=== PATIENT | female | born 1985 ===

== ENCOUNTER 2024-03-12 13:15 | Inpatient (IN) | payer OTHER ==
[~2024-03-12] VITALS: Ht 162.6 cm; Wt 59.0 kg
[2024-03-21] VITALS (8 sets, daily range): BP systolic 106–135; BP diastolic 64–80
[2024-03-21] MEDS ORDERED: AMPICILLIN SODIUM 2,000 MG VIAL ONE (06:29)
[2024-03-21] MEDS ORDERED: PRENATAL TABLE1 EAC1 PO (06:54)
[2024-03-21] MEDS ORDERED: RINGERS SOLUTION,LACTATED 1,000 ML IV SCH (07:00)
[2024-03-21] MEDS ORDERED: AMPICILLIN SODIUM 2,000 MG VIAL IV ONE (07:00)
[2024-03-21] MEDS ORDERED: OXYTOCIN 20 UNITS/500ML RL PIGGYBAG IV ONE (07:01)
[2024-03-21] MEDS ORDERED: OXYTOCIN 500 ML IV ONE (07:30)
[2024-03-21 07:56] LABS: HEMATOCRIT 33.2 % (36.0-45.00); HEMOGLOBIN 11.3 g/dL (12.0-15.00); MEAN CELL VOLUME 88.7 fL (80.00-100.00); MEAN CORPUSCULAR HEMOGLOBIN 30.1 pg (27.00-32.0); MEAN CORPUSCULAR HGB CONC 33.9 g/dl (32.0-36.0); PLATELET COUNT 192 K/uL (150-450); RED BLOOD COUNT 3.75 M/uL (4.00-6.00); RED CELL DISTRIBUTION WIDTH 13.8 % (11.5-14.5)
[2024-03-21 08:41] LABS: INR 0.94; PARTIAL THROMBOPLASTIN TIME 28.2 SECONDS (22.0-34.0); PROTHROMBIN TIME 10.3 SECONDS (9.0-11.5)
[2024-03-21 08:55] LABS: ALBUMIN 2.6 gm/dL (3.4-5.0); BILIRUBIN TOTAL 0.45 mg/dL (0.3-1.2); CALCIUM 9.2 mg/dL (8.5-10.1); CREATININE SERUM 0.5 mg/dL (0.55-1.02); GFR 138.83; GLOBULINA 4.5 G/DL (2.4-3.5); POTASSIUM 3.92 mEq/L (3.5-5.1); TOTAL PROTEIN 7.1 gm/dL (6.4-8.2)
[2024-03-21] MEDS ORDERED: ONDANSETRON HCL 2 MG/ML VIAL IV NR (09:45)
[2024-03-21] MEDS ORDERED: MORPHINE SULFATE 4 MG/ML CARTRIDGE IV NR (09:45)
[2024-03-21] MEDS ORDERED: OXYTOCIN 20 UNITS/1000ML RL PIGGYBAG IV ONE (10:04)
[2024-03-21] MEDS ORDERED: CHLORHEXIDINE GLUCONATE 120 ML BOTTLE TOP ONE ×2 (10:04→14:15)
[2024-03-21] MEDS ORDERED: LIDOCAINE HCL 1% 10ML VIAL ONE ×2 (10:04→13:04)
[2024-03-21] MEDS ORDERED: ERYTHROMYCIN BASE 1 GM TUBE OP ONE ×2 (10:04→14:15)
[2024-03-21] MEDS ORDERED: AMPICILLIN SODIUM 1,000 MG VIAL IV SCH (12:00)
[2024-03-21] MEDS ORDERED: NALOXONE HCL 0.4 MG/ML AMPUL ONE (12:28)
[2024-03-21] MEDS ORDERED: METHYLERGONOVINE MALEATE 0.2 MG/ML AMPUL ONE (13:16)
[2024-03-21] MEDS ORDERED: IBUprofen 400 MG TABLET PO PRN (13:45)
[2024-03-21] MEDS ORDERED: OxyCODONE HCL/APAP UD (PERCOCET) PO PRN (13:45)
[2024-03-21] MEDS ORDERED: OXYTOCIN 1,000 ML IV SCH (13:45)
[2024-03-21] MEDS ORDERED: LIDOCAINE HCL 1% 10ML VIAL IJ ONE (14:15)
[2024-03-21] MEDS ORDERED: METHYLERGONOVINE MALEATE 0.2 MG/ML AMPUL IM STA (14:17)
[2024-03-21] MEDS ORDERED: NALOXONE HCL 0.4 MG/ML AMPUL IV STA (14:17)
[2024-03-22] VITALS: BP 111/71
[2024-03-22 08:00] VITALS: BP 119/79
[2024-03-22] MEDS ORDERED: DOCUSATE SODIUM 100MG CAP PO SCH (09:00)
[2024-03-22 15:38] VITALS: BP 122/77
[2024-03-23 01:09] VITALS: BP 115/72
[2024-03-23 09:29] VITALS: BP 119/77
[2024-03-23 11:03] VITALS: BP 119/77
== END 2024-03-23 12:03 | disposition home or self-care (01) | DRG 807 ==
LOC: LDR 03-21 06:21 → OB/GYN 03-21 16:22
PROVIDERS: Obstetrics & Gynecology; ADMIT Obstetrics & Gynecology; ATTEND Obstetrics & Gynecology
PROC: 10D07Z6 Extraction of Products of Conception, Vacuum, Via Natural or Artificial Opening (ICD-10-PCS; principal; 2024-03-21)
PROC: 0W8NXZZ Division of Female Perineum, External Approach (ICD-10-PCS; 2024-03-21)
PROC: 4A1HXCZ Monitoring of Products of Conception, Cardiac Rate, External Approach (ICD-10-PCS; 2024-03-21)
DX: O66.5 Attempted application of vacuum extractor and forceps (principal); O99.824 Streptococcus B carrier state complicating childbirth; Z37.0 Single live birth; Z3A.39 39 weeks gestation of pregnancy

== ENCOUNTER 2024-03-16 13:08 | Outpatient (CLI) | payer OTHER | END 2024-03-16 14:22 | disposition home or self-care (01) | LOC: NST 13:08 | PROVIDERS: ATTEND Obstetrics & Gynecology Maternal & Fetal Medicine | DX: Z34.83 Encounter for supervision of other normal pregnancy, third trimester (principal) ==